=== PATIENT | male | born 1975 | race Caucasian/White ===

== ENCOUNTER 2017-06-28 10:13 | Emergency (ER) | payer OTHER ==
[~2017-06-28] VITALS: Ht 172.7 cm; Wt 81.6 kg
== END 2017-06-28 14:18 | disposition home or self-care (01) ==
LOC: ER 10:13
DX: N45.1 Epididymitis (principal)

== ENCOUNTER → 2018-10-01 | Outpatient (CLI) | payer OTHER | END | disposition home or self-care (01) | LOC: RAD 501 11:00 | DX: M25.511 Pain in right shoulder (principal) ==

== ENCOUNTER 2018-11-29 09:00 | Emergency (ER) | payer OTHER ==
[~2018-11-29] VITALS: Ht 170.2 cm; Wt 81.6 kg
== END 2018-11-29 13:18 | disposition home or self-care (01) ==
LOC: ER 09:00
DX: N45.1 Epididymitis (principal); N43.3 Hydrocele, unspecified; N50.811 Right testicular pain